=== PATIENT | female | born 1945 | race Caucasian/White ===

== ENCOUNTER 2025-06-23 09:41 | Emergency (ER) | payer SELFPAY ==
[~2025-06-23] VITALS: Ht 152.4 cm; Wt 63.5 kg
[2025-06-23 09:46] VITALS: O2SAT 57
[2025-06-23 10:12] LABS: BASOPHILS % 1.2 % (0.0-2.0); EOSINOPHILS % 6.2 % (0.0-5.0); HEMATOCRIT. 42.3 % (36.0-48.0); HEMOGLOBIN. 13.8 g/dL (12.0-16.0); LYMPHOCYTES % 36.7 % (20.0-50.0); MEAN PLATELET VOLUME 8.2 fl (7.4-10.4); MONOCYTES % 9.3 % (2.0-8.0); NEUTROPHILS % 46.6 % (40.0-76.0); PLATELET 208 x1000/uL (130-400); RED BLOOD CELL COUNT 5.01 mill/uL (4.2-5.4); RED CELL DISTRIBUTION WIDTH 13.1 % (11.6-14.6)
[2025-06-23] MEDS: ONDANSETRON HCL 4MG/2ML INJ IV ONE (10:22)
[2025-06-23] MEDS: SODIUM CHLORIDE 0.9% 500 ML IV ONE (10:22)
[2025-06-23 10:33] LABS: CREATININE 0.6 mg/dL (0.6-1.0); TROPONIN I HIGH SENSITIVITY 4 ng/L (3.0-34); UREA NITROGEN BLOOD 6 mg/dL (9-23)
[2025-06-23 10:35] LABS: ASPARTATE AMINOTRANSFERASE 13 IU/L (<34); BILIRUBIN DIRECT 0.3 mg/dL (<=3.0); BILIRUBIN TOTAL 1.0 mg/dL (0.1-1.0); PROTEIN TOTAL 6.5 g/dL (6.0-8.3)
[2025-06-23] MEDS ORDERED: IPRATROPIUM/ALBUTEROL 0.5-3(2.5)MG/3ML NEB HHN PRN (13:45)
[2025-06-23] MEDS ORDERED: SODIUM CHLORIDE 0.9% 1,000 ML IV SCH (13:45)
[2025-06-23] MEDS ORDERED: ONDANSETRON HCL 4MG/2ML INJ IV PRN (13:45)
[2025-06-23] MEDS ORDERED: ACETAMINOPHEN 325MG TABLET PO PRN ×2 (13:45)
[2025-06-23 14:50] LABS: TROPONIN I HIGH SENSITIVITY < 4 ng/L (3.0-34)
[2025-06-23 16:10] VITALS: BP 144/67; PULSE 78; RESP 18; TEMP 36.8; O2SAT 98
== END 2025-06-23 16:15 | disposition left against medical advice (07) ==
LOC: ER 09:41 → ENRESERV 13:28 → ER 16:15 → CMPBEDREQ 06-25 07:41
DX: K80.20 Calculus of gallbladder without cholecystitis without obstruction (principal); R10.84 Generalized abdominal pain; I10 Essential (primary) hypertension; Z90.710 Acquired absence of both cervix and uterus; Z88.0 Allergy status to penicillin
CPT/HCPCS: 99285; 74176; 96374; 76705; 96361; 71045; 80076; 80048; 83690; 85025; 84484; 36415; 93005; J2405; J7040